=== PATIENT | female | born 1955 | race Caucasian/White ===

== ENCOUNTER 2020-11-25 23:12 | Inpatient (IN) ==
[2020-11-26] MEDS ORDERED: GLUCAGON 1 MG VIAL IM PRN ×2 (00:46→02:20)
[2020-11-26] MEDS ORDERED: DEXTROSE 50% 25 GM/50 ML VIAL IV PRN ×2 (00:46→02:20)
[2020-11-26] MEDS ORDERED: ONDANSETRON 4 MG/2 ML VIAL IV PRN (00:46)
[2020-11-26 08:31] LABS: Basophils # 0.1 10*3/uL (0.0-0.2); Basophils % 0.6 % (0.0-0.8); Eosinophils # 0.5 10*3/uL (0.0-0.87); Hematocrit 33.5 VOL% (35.7-47.0); Hemoglobin 11.1 GM/DL (12.0-16.0); Immature Granulocytes % 1.6 %; Immature Granulocytes Absolute 0.13 #; Lymphocytes # 1.1 10*3/uL (1.4-4.0); Lymphocytes % 13.5 % (21.3-54.2); Mean Corpuscular HGB Conc 33.1 GM/DL (32-36); Mean Corpuscular Volume 83.1 FL (87-102); Mean Platelet Volume 9.1 FL (9.6-12.0); Monocytes % 5.4 % (1.7-12.7); Neutrophils % 72.9 % (38.7-73.9); Platelet Count 197 T/CUMM (130-400); Red Blood Count 4.03 MC/CUMM (3.8-5.5); Red Cell Distribution Width 14.8 % (9.3-17.3)
[2020-11-26 09:05] LABS: Albumin 2.7 G/DL (3.4-5.0); Calcium 9.4 MG/DL (8.5-10.1); Osmolality,Calculated 274.5 MOS/KG (273-304); Potassium 3.1 MMOL/L (3.5-5.1); Total Protein 6.8 G/DL (6.4-8.3)
[2020-11-26 09:10] LABS: Bilirubin,Total 14.2 MG/DL (0.2-1.0)
[2020-11-26] MEDS: PANTOPRAZOLE 40 MG TABLET PO SCH (09:17)
[2020-11-26] MEDS: INSULIN REGULAR 100 UNIT/ML SUBCUT SCH ×4 (09:18→21:55)
[2020-11-26 09:20] LABS: Cancer Antigen 19-9 76.7 U/ML (0-35)
[2020-11-26] MEDS ORDERED: POTASSIUM CHLORIDE 20 MEQ TABLET PO PRN (09:53)
[2020-11-26] MEDS ORDERED: CETIRIZINE 10 MG TABLET PO PRN (13:01)
[2020-11-26] MEDS: LEVOFLOXACIN INJ 500 MG in PREMIX 1 EACH IV SCH (14:58)
[2020-11-26] MEDS: VENLAFAXINE XR 37.5 MG CAPSULE PO SCH (14:59)
[2020-11-26] MEDS: levETIRAcetam 500 MG TABLET PO SCH ×2 (14:59→21:55)
[2020-11-26] MEDS: MONTELUKAST 10 MG TABLET PO SCH (14:59)
[2020-11-26] MEDS: LOSARTAN 50 MG TABLET PO SCH (14:59)
[2020-11-27] MEDS: SODIUM CHLORIDE 0.9% 1,000 ML IV SCH (01:58)
[2020-11-27 05:36] LABS: Basophils # 0.1 10*3/uL (0.0-0.2); Basophils % 0.7 % (0.0-0.8); Eosinophils # 0.5 10*3/uL (0.0-0.87); Eosinophils % 6.8 % (0.00-10.9); Hematocrit 32.6 VOL% (35.7-47.0); Hemoglobin 10.9 GM/DL (12.0-16.0); Immature Granulocytes % 1.5 %; Immature Granulocytes Absolute 0.11 #; Lymphocytes # 1.4 10*3/uL (1.4-4.0); Lymphocytes % 18.3 % (21.3-54.2); Mean Corpuscular HGB Conc 33.4 GM/DL (32-36); Mean Corpuscular Volume 82.7 FL (87-102); Mean Platelet Volume 9.6 FL (9.6-12.0); Monocytes % 5.7 % (1.7-12.7); Platelet Count 205 T/CUMM (130-400); Red Blood Count 3.94 MC/CUMM (3.8-5.5); Red Cell Distribution Width 15.1 % (9.3-17.3); White Blood Count 7.4 T/CUMM (4-12)
[2020-11-27 05:41] LABS: INR 1.2; PT Patient Result 12.3 SECS (9.8-11.9)
[2020-11-27 06:09] LABS: Albumin 2.6 G/DL (3.4-5.0); Bilirubin,Direct 11.94 MG/DL (0.0-0.20); Calcium 8.9 MG/DL (8.5-10.1); Potassium 3.4 MMOL/L (3.5-5.1); Total Protein 6.6 G/DL (6.4-8.3)
[2020-11-27 06:11] LABS: Albumin 2.6 G/DL (3.4-5.0); Calcium 9.3 MG/DL (8.5-10.1); Osmolality,Calculated 272.1 MOS/KG (273-304); Potassium 3.4 MMOL/L (3.5-5.1); Total Protein 6.7 G/DL (6.4-8.3)
[2020-11-27 06:17] LABS: Bilirubin,Indirect 3.2 MG/DL (0.0-1.0); Bilirubin,Total 15.1 MG/DL (0.2-1.0)
[2020-11-27 06:21] LABS: Bilirubin,Total 15.4 MG/DL (0.2-1.0)
[2020-11-27] MEDS ORDERED: INDOMETHACIN SUPP 50 MG SUPP RECTAL ONE (08:00)
[2020-11-27] MEDS ORDERED: hydrOXYzine HCL 25 MG TABLET PO PRN (09:11)
[2020-11-27] MEDS ORDERED: SCOPOLAMINE 1.5 MG PATCH TRANSDERM ONE (10:25)
[2020-11-27] MEDS: LACTATED RINGERS 1,000 ML IV SCH (10:28)
[2020-11-27] MEDS ORDERED: FAMOTIDINE 20 MG/2 ML VIAL IV ONE (10:30)
[2020-11-27] MEDS ORDERED: LIDOCAINE 2% 5 ML VIAL ONE (10:40)
[2020-11-27] MEDS ORDERED: SEVOFLURANE 1 UNIT/15 MINUTE INH ONE ×6 (10:40→12:30)
[2020-11-27] MEDS ORDERED: ROCURONIUM 50 MG/5 ML VIAL IV ONE (10:40)
[2020-11-27] MEDS ORDERED: fentaNYL 100 MCG/2 ML VIAL ONE (10:40)
[2020-11-27] MEDS ORDERED: ONDANSETRON 4 MG/2 ML VIAL ONE (10:40)
[2020-11-27] MEDS ORDERED: MIDAZOLAM 2 MG/2 ML VIAL ONE (10:40)
[2020-11-27] MEDS ORDERED: SUCCINYLCHOLINE 200 MG/10 ML VIAL ONE (10:40)
[2020-11-27] MEDS ORDERED: propofoL 200 MG/20 ML VIAL IV ONE (10:40)
[2020-11-27] MEDS: INSULIN REGULAR 100 UNIT/ML SUBCUT SCH ×4 (11:04→21:59)
[2020-11-27] MEDS: levETIRAcetam 500 MG TABLET PO SCH ×2 (11:05→22:00)
[2020-11-27] MEDS: LOSARTAN 50 MG TABLET PO SCH (11:05)
[2020-11-27] MEDS: MONTELUKAST 10 MG TABLET PO SCH (11:05)
[2020-11-27] MEDS: VENLAFAXINE XR 37.5 MG CAPSULE PO SCH (11:05)
[2020-11-27] MEDS: PANTOPRAZOLE 40 MG TABLET PO SCH (11:05)
[2020-11-27] MEDS ORDERED: PHENYLEPHRINE 1 MG/10 ML SYRINGE IV ONE (12:31)
[2020-11-27] MEDS: LEVOFLOXACIN INJ 500 MG in PREMIX 1 EACH IV SCH (13:53)
[2020-11-27] MEDS: MENTHOL/ZINC OXIDE OINT 71 GM JAR TOP SCH ×2 (17:02→22:00)
[2020-11-28] MEDS: SODIUM CHLORIDE 0.9% 1,000 ML IV SCH ×2 (02:26→10:00)
[2020-11-28 06:08] LABS: Basophils % 0.6 % (0.0-0.8); Eosinophils # 0.4 10*3/uL (0.0-0.87); Hematocrit 30.8 VOL% (35.7-47.0); Immature Granulocytes % 1.3 %; Immature Granulocytes Absolute 0.09 #; Lymphocytes # 1.1 10*3/uL (1.4-4.0); Lymphocytes % 15.6 % (21.3-54.2); Mean Corpuscular HGB Conc 32.5 GM/DL (32-36); Mean Corpuscular Volume 84.6 FL (87-102); Monocytes % 5.6 % (1.7-12.7); Neutrophils % 70.9 % (38.7-73.9); Platelet Count 199 T/CUMM (130-400); Red Blood Count 3.64 MC/CUMM (3.8-5.5); Red Cell Distribution Width 15.4 % (9.3-17.3); White Blood Count 7.2 T/CUMM (4-12)
[2020-11-28 06:24] LABS: Albumin 2.5 G/DL (3.4-5.0); Bilirubin,Direct 3.59 MG/DL (0.0-0.20); Bilirubin,Indirect 2.2 MG/DL (0.0-1.0); Bilirubin,Total 5.8 MG/DL (0.2-1.0); Calcium 8.7 MG/DL (8.5-10.1); Osmolality,Calculated 280.1 MOS/KG (273-304); Potassium 3.8 MMOL/L (3.5-5.1); Total Protein 6.7 G/DL (6.4-8.3)
[2020-11-28 06:30] LABS: Albumin 2.4 G/DL (3.4-5.0); Bilirubin,Total 5.5 MG/DL (0.2-1.0); Calcium 8.8 MG/DL (8.5-10.1); Osmolality,Calculated 276.4 MOS/KG (273-304); Total Protein 6.6 G/DL (6.4-8.3)
[2020-11-28] MEDS: PANTOPRAZOLE 40 MG TABLET PO SCH (09:26)
[2020-11-28] MEDS: levETIRAcetam 500 MG TABLET PO SCH (09:26)
[2020-11-28] MEDS: LOSARTAN 50 MG TABLET PO SCH (09:26)
[2020-11-28] MEDS: MONTELUKAST 10 MG TABLET PO SCH (09:26)
[2020-11-28] MEDS: VENLAFAXINE XR 37.5 MG CAPSULE PO SCH (09:26)
[2020-11-28] MEDS: INSULIN REGULAR 100 UNIT/ML SUBCUT SCH ×2 (10:00→12:49)
[2020-11-28] MEDS: MENTHOL/ZINC OXIDE OINT 71 GM JAR TOP SCH (10:01)
[2020-11-28] MEDS: LACTATED RINGERS 1,000 ML IV SCH (10:01)
[2020-11-28 13:12] VITALS: BP 112/51
[2020-11-28] MEDS: LEVOFLOXACIN INJ 500 MG in PREMIX 1 EACH IV SCH (15:01)
== END 2020-11-28 17:15 | disposition home or self-care (01) | DRG 445 ==
LOC: N.3E 11-26 00:29 → SUATTDRO 11-26 00:29
PROVIDERS: ADMIT Internal Medicine; ATTEND Internal Medicine